=== PATIENT | male | born 2000 | race Caucasian/White ===

== ENCOUNTER 2022-06-04 09:10 | Inpatient (IN) | payer OTHER, SELFPAY ==
[2022-06-04] MEDS ORDERED: Acetaminophen 325 MG TAB PO PRN (09:19)
[2022-06-04] MEDS ORDERED: Senokot S 8.6-50 MG TAB PO PRN (09:19)
[2022-06-04] MEDS ORDERED: Ondansetron PF 4 MG/2 ML Vial IVP PRN (09:19)
[2022-06-04] MEDS ORDERED: Guaifenesin DM 100-10/5 ML UDCUP PO PRN (09:19)
[2022-06-04] MEDS ORDERED: HYDROcodone/Acetaminophen 5/325 mg Tablet PO PRN (09:19)
[2022-06-04] MEDS ORDERED: Heparin 10,000 UNITS/ 10 ML VIAL SLOW IVP SCH (09:30)
[2022-06-04] MEDS ORDERED: Heparin 25,000 units/D5W 500 ML IVPB SCH (09:30)
[2022-06-04 11:07] LABS: Hemoglobin 15.3 g/dL (14.0-18.0); Platelet Count 238 10x3/uL (130-400)
[2022-06-04 11:22] LABS: PTT 26.7 sec (22.9-36.1)
[2022-06-04 11:23] LABS: D-Dimer Test 1.28 *mcg/mL (0.27-0.43)
[2022-06-04] MEDS ORDERED: FLU VACC QS2022-23(6MOS UP)/PF 60 MCG/0.5 ML SYRINGE IM ONE (13:45)
[2022-06-04] MEDS ORDERED: ISOVUE-370 76%-LOCM 1 ML ONE (15:24)
[2022-06-04 17:53] LABS: Cardiolipin IgA Ab 3.6 APL-U/mL (<14 Negative); Cardiolipin IgM Ab 1.6 MPL-U/mL (<10 Negative); EliA APS New Method **** NEW METHOD ****
[2022-06-04 19:47] VITALS: BMI 27.1
[2022-06-05 02:30] LABS: #Lymphocytes 1.4 thou/uL (1.20-3.40); #Monocytes 0.7 thou/uL (0.11-0.59); #Neutrophils 6.8 thou/uL (1.40-6.50); %Basophils 0.4 % (0.0-1.0); %Eosinophils 0.2 % (0.0-10.0); %Lymphocytes 15.3 % (21.0-51.0); %Monocytes 7.7 % (0.0-10.0); %Neutrophils 76.3 % (42.0-75.0); Hemoglobin 13.6 g/dL (14.0-18.0); Mean Corpuscular HGB CONC 34.3 g/dL (32.0-36.0); Mean Corpuscular Hemoglobin 30.4 pg (27.0-31.0); Mean Corpuscular Volume 88.7 fl (78.0-98.0); Mean Platelet Volume 7.3 fL (7.4-10.4); Platelet Count 213 10x3/uL (130-400); RBC Distribution Width 11.2 % (11.5-14.5); Red Blood Cell (RBC) Count 4.48 mill/uL (4.70-6.10); White Blood Cell (WBC) Count 8.8 10x3/uL (4.8-10.8)
[2022-06-05 02:47] LABS: PTT 122.5 sec (22.9-36.1)
[2022-06-05 03:30] LABS: Calcium 9.1 mg/dL (7.8-10.44); Chloride 108 mmol/L (98-107); Potassium 3.7 mmol/L (3.5-5.1); Sodium 141 mmol/L (136-145)
[2022-06-05 03:31] LABS: Glucose 114 mg/dL (70-105)
[2022-06-05 03:32] LABS: Anion Gap 14 mmol/L (10-20); Carbon Dioxide 23 mmol/L (22-29)
[2022-06-05 03:34] LABS: Calc. Creatinine Clearance 171 mL/min (70-130); Estimated GFR 125
[2022-06-05 03:35] LABS: BUN (Urea Nitrogen) 16 mg/dL (8.9-20.6)
[2022-06-05] MEDS: Apixaban 5 MG TAB PO SCH (20:47)
[2022-06-06 05:27] LABS: #Eosinphils 0.1 thou/uL (0.0-0.7); #Lymphocytes 1.7 thou/uL (1.20-3.40); #Monocytes 0.4 thou/uL (0.11-0.59); #Neutrophils 2.3 thou/uL (1.40-6.50); %Basophils 1.1 % (0.0-1.0); %Eosinophils 1.8 % (0.0-10.0); %Lymphocytes 36.8 % (21.0-51.0); %Monocytes 8.9 % (0.0-10.0); %Neutrophils 51.3 % (42.0-75.0); Hemoglobin 13.9 g/dL (14.0-18.0); Mean Corpuscular HGB CONC 34.5 g/dL (32.0-36.0); Mean Corpuscular Hemoglobin 30.9 pg (27.0-31.0); Mean Corpuscular Volume 89.6 fl (78.0-98.0); Mean Platelet Volume 7.2 fL (7.4-10.4); Platelet Count 223 10x3/uL (130-400); RBC Distribution Width 11.2 % (11.5-14.5); Red Blood Cell (RBC) Count 4.51 mill/uL (4.70-6.10); White Blood Cell (WBC) Count 4.6 10x3/uL (4.8-10.8)
[2022-06-06 05:45] LABS: Anion Gap 13 mmol/L (10-20); BUN (Urea Nitrogen) 13 mg/dL (8.9-20.6); Calc. Creatinine Clearance 153 mL/min (70-130); Calcium 9.4 mg/dL (7.8-10.44); Carbon Dioxide 25 mmol/L (22-29); Chloride 108 mmol/L (98-107); Estimated GFR 113; Glucose 89 mg/dL (70-105); Potassium 4.5 mmol/L (3.5-5.1); Sodium 141 mmol/L (136-145)
[2022-06-06] MEDS: Apixaban 5 MG TAB PO SCH ×2 (09:30→21:09)
[2022-06-06 09:41] LABS: Hemoglobin 14.3 g/dL (14.0-18.0); Platelet Count 234 10x3/uL (130-400)
[2022-06-07] MEDS: Apixaban 5 MG TAB PO SCH (09:15)
[2022-06-07 13:10] VITALS: BP 143/78; TEMP 98.2
[2022-06-08 12:03] LABS: HEX PHOS LA Tube 1 33.6 SEC; HEX PHOS LA Tube 2 28.9 SEC; Hexagonal Phospholipid Neut 4.7 SEC (0-8.0)
== END 2022-06-07 14:40 | disposition home or self-care (01) | DRG 301 ==
LOC: 2NO 09:10
PROVIDERS: ADMIT Hospitalist; ATTEND Internal Medicine
DX: I82.B11 Acute embolism and thrombosis of right subclavian vein (principal); G54.0 Brachial plexus disorders; I82.A11 Acute embolism and thrombosis of right axillary vein; Z98.890 Other specified postprocedural states
CPT/HCPCS: 36415; 71275; 80048; 83090; 85014; 85018; 85025; 85049; 85300; 85303; 85305; 85307; 85379; 85598; 85610; 86147; 93005; 93010; 93306; 93880; J1644; Q9966